=== PATIENT | female | born 1995 | race Caucasian/White ===

== ENCOUNTER 2019-04-11 08:08 | Day surgery (SDC) | payer BC ==
[2019-04-11] MEDS ORDERED: PROPOFOL 10 MG/ML VIAL IV ONE (08:09)
[2019-04-11] MEDS ORDERED: LIDOCAINE 2% MDV (20MG/ML) 20ML VIAL IV ONE (08:09)
--- NOTE | 2019-04-12 07:20 | Operative Note ---
OPERATION: ESOPHAGOGASTRODUODENOSCOPY with biopsy. PREOPERATIVE DIAGNOSIS: Intractable recurrent nausea and vomiting. POSTOPERATIVE DIAGNOSIS: Normal upper endoscopy, rule out occult celiac, rule out occult H pylori. ESTIMATED BLOOD LOSS: Minimum. SPECIMENS: Random duodenum and random gastric. COMPLICATIONS: None apparent. PROCEDURE: After informed consent was obtained from the patient, she was placed in the left lateral decubitus position in the endoscopy suite, sedated and monitored by the department of anesthesia. Once sedated, a well-lubricated [id number] gastroscope was placed in the posterior oropharynx under direct visualization and passed to the proximal esophagus. The endoscope was advanced through the proximal, mid, and distal esophagus. The GE junction and esophagus were unremarkable. The gastric body, antrum, pylorus, duodenal bulb, and sweep were unrevealing. Random duodenal biopsies obtained to rule out occult celiac sprue. J-turn views of the proximal stomach were unremarkable. The endoscope was straightened and random gastric biopsies were obtained for histology. The stomach was deflated. The endoscope removed from the patient with no new findings noted. RECOMMENDATIONS: We will await the results of tissue histology. In the meantime, would suggest the patient undergo a heavy metal screen to rule out the possibility of occult heavy metal exposure. Would also suggest a gastric emptying evaluation and an ultrasound of the abdomen. Will also check laboratory studies as well. As always, thank you for allowing me to participate in the healthcare of your patients. CC: VALENTINO Jean
== END 2019-04-11 10:58 | disposition home or self-care (01) ==
LOC: HOP 08:08
PROVIDERS: ATTEND Internal Medicine Gastroenterology
DX: K29.50 Unspecified chronic gastritis without bleeding (principal); K21.9 Gastro-esophageal reflux disease without esophagitis; E03.9 Hypothyroidism, unspecified
CPT/HCPCS: 81025; 86140